=== PATIENT | male | born 1950 | race Caucasian/White ===

== ENCOUNTER → 2018-08-31 10:22 | Outpatient (POV) | payer MEDICARE, SELFPAY | PROVIDERS: Visit Provider Dermatology | DX: Z00.00 Encounter for general adult medical examination without abnormal findings (principal) ==

== ENCOUNTER → 2018-10-05 10:11 | Outpatient (POV) | payer MEDICARE, SELFPAY | PROVIDERS: Visit Provider Dermatology | DX: Z00.00 Encounter for general adult medical examination without abnormal findings (principal) ==

== ENCOUNTER → 2019-07-20 10:06 | Outpatient (CLI) | payer MEDICARE, SELFPAY ==
--- NOTE | 2019-07-20 10:12 | CT_ITS ---
PROCEDURE: CT SINUS WO CON CLINICAL HISTORY: CHRONIC RHITIS/SINUSITIS Left-sided facial pressure and nasal stuffiness COMPARISON: No exams were available for comparison TECHNIQUE: Axial images obtained with sagittal and coronal reformats. All CT scans at the facility use one or more dose reduction, viz: automated exposure control, ma/kV adjustment per patient size (including targeted exams where dose is matched to indication, i.e. head), or iterative reconstruction technique. FINDINGS: There is moderate leftward nasal septal deviation with a septal spur projecting toward the left. There is mild mucosal thickening of the left maxillary sinus. The frontal, ethmoid, right maxillary, and sphenoid sinus have an unremarkable appearance. No mastoid effusion. There is soft tissue density in both external auditory canals and may be related to cerumen. The middle ears are well aerated. The orbits are unremarkable. Osteoarthritic changes are present involving the right TMJ. IMPRESSION: 1. Mild mucosal thickening left maxillary sinus. No sinus air-fluid level. 2. Leftward nasal septal deviation. 3. Mild right TMJ arthropathy. Dictated by: Rian Segura MD 07/21/2019 11:59 Electronically signed by Rian Segura MD in [place] 07/21/2019 11:59
== END ==
PROVIDERS: PCP Internal Medicine; Visit Provider Internal Medicine
DX: J32.0 Chronic maxillary sinusitis (principal)
CPT/HCPCS: 70486

== ENCOUNTER → 2019-08-02 14:47 | Outpatient (CLI) | payer MEDICARE, SELFPAY ==
--- NOTE | 2019-08-02 14:56 | CT_ITS ---
PROCEDURE: CT ABDOMEN WO CON CLINICAL HISTORY: ABNORMAL WGT LOSS Abnormal weight loss, family history pancreatic cancer COMPARISON: No exams were available for comparison TECHNIQUE: Axial images obtained with sagittal and coronal reformats. All CT scans at the facility use one or more dose reduction, viz: automated exposure control, ma/kV adjustment per patient size (including targeted exams where dose is matched to indication, i.e. head), or iterative reconstruction technique. FINDINGS: There are at an mild atelectatic changes in the right lung base. There are some mild coronary artery calcifications noted. Multiple gallstones. The liver, spleen, adrenal glands, and pancreas have an unremarkable unenhanced appearance. No pancreatic mass or peripancreatic fluid collection or pancreatic ductal dilatation is identified. There is pancreatic atrophy. Thin section images are obtained of the abdomen including the pancreas. There is severe bilateral renal atrophy. There is an exophytic isodense the along the lower pole of the left kidney consistent with a renal cyst measuring 15 mm. There is some mild haziness of the mesenteric fat in the right lower quadrant nonspecific. Right pelvic renal allograft is present with some vascular calcification at the hilum of the graft. No hydronephrosis. There is diverticulosis of the sigmoid colon. The pelvis is not completely imaged. A diverticulum is also present in the ascending colon. No acute bony findings. IMPRESSION: 1. No evidence of pancreatic mass. There is pancreatic atrophy. 2. Cholelithiasis. 3. Coronary artery calcification. 4. Bilateral renal atrophy with right lower quadrant renal allograft noted Dictated by: Rian Segura MD 08/03/2019 06:18 Electronically signed by Rian Segura MD in [place] 08/03/2019 06:18
== END ==
PROVIDERS: PCP Internal Medicine; Visit Provider Internal Medicine
DX: R63.4 Abnormal weight loss (principal)
CPT/HCPCS: 74150

== ENCOUNTER → 2019-10-11 10:14 | Outpatient (POV) | payer MEDICARE, SELFPAY | PROVIDERS: Visit Provider Dermatology | DX: Z00.00 Encounter for general adult medical examination without abnormal findings (principal) ==

== ENCOUNTER → 2021-01-08 10:57 | Outpatient (POV) | payer MEDICARE, SELFPAY | PROVIDERS: Visit Provider Dermatology | DX: Z00.00 Encounter for general adult medical examination without abnormal findings (principal) ==

== ENCOUNTER → 2021-08-16 10:43 | Outpatient (CLI) | payer MEDICARE, SELFPAY ==
[2021-08-16 10:54] LABS: Microscopic, Urine URINE MICROSCOPIC (MICROSCOPIC)
[2021-08-16 11:23] LABS: Basophils # 0.1 K/mm3 (0-0.2); Basophils % 1.2 % (0.1-2.0); Eosinophils # 0.1 K/mm3 (0.0-0.4); Eosinophils % 1.2 % (0.1-12.0); Hematocrit 48.6 % (42.0-52.0); Lymphocytes # 1.8 K/mm3 (0.7-4.5); Lymphocytes % 27.6 % (10-50); Mean Corpuscular Volume 84.8 fl (80-94); Mean Platelet Volume 8.6 fl (7.4-10.4); Monocytes # 0.4 K/mm3 (0.1-1.0); Monocytes % 6.5 % (1.7-9.3); Neutrophils # 4.1 K/mm3 (1.8-7.8); Neutrophils % 63.4 % (37.0-80.0); Platelet Count 220 K/mm3 (142-424); Red Blood Count 5.73 M/mm3 (4.60-6.20); Red Cell Distribution Width 15.5 % (11.5-17.5); White Blood Count 6.5 K/mm3 (4.8-10.8)
[2021-08-16 11:48] LABS: Appearance,Urine CLEAR (Clear); Bilirubin,Urine Negative (Negative); Blood, Urine 1+ (Negative); Color,Urine YELLOW (Yellow); Glucose,Urine (UA) Negative (Negative); Ketones,Urine Negative (Negative); Leukocyte Esterase,Urine Negative (Negative); Nitrate,Urine Negative (Negative); Protein,Urine Negative (Negative); Specific Gravity, Urine 1.025 (1.005-1.030); Urobilinogen,Urine 0.2 EU/dl (0.2)
[2021-08-16 12:08] LABS: Creatinine,Urine Random 144 mg/dL (Not Estab.)
[2021-08-16 12:20] LABS: INR 2.69 (0.9-1.1); Prothrombin Time 28.2 seconds (10.1-12.5)
[2021-08-16 12:35] LABS: Albumin Level 4.2 g/dl (3.5-5.0); Blood Urea Nitrogen 18 mg/dl (9-20); Calcium 8.6 mg/dl (8.4-10.2); Carbon Dioxide 29 mmol/L (22.0-30.0); Chloride 104 mmol/L (98-107); Estimated Glomerular Filt Rate 74 ml/min (>60); GFR (African American) 90 ML/MIN (>60); Glucose 100 mg/dl (74-100); Phosphorous 3.6 mg/dl (2.5-4.5); Sodium 140 mmol/L (136-145)
[2021-08-16 12:47] LABS: Intact Parathyroid Hormone 110.2 pg/mL (7.5-53.5)
[2021-08-16 12:52] LABS: 25-OH Vitamin D, Total 41.4 ng/mL (30-100)
[2021-08-16 13:07] LABS: Bacteria,Urine 2+ /lpf; RBC,Urine Occasional #/hpf (0-3)
[2021-08-16 13:08] LABS: WBC,Urine Occasional #/hpf (0-3)
== END ==
PROVIDERS: Internal Medicine; Visit Provider Nurse Practitioner
DX: N18.2 Chronic kidney disease, stage 2 (mild) (principal); R80.9 Proteinuria, unspecified; E55.9 Vitamin D deficiency, unspecified; Z94.0 Kidney transplant status
CPT/HCPCS: 36415; 80069; 81001; 82306; 82570; 83970; 84155; 85025; 85610; 87086

== ENCOUNTER → 2021-09-17 09:36 | Outpatient (CLI) | payer MEDICARE, SELFPAY ==
[2021-09-17 10:36] LABS: Basophils % 0.6 % (0.1-2.0); Eosinophils # 0.1 K/mm3 (0.0-0.4); Eosinophils % 0.9 % (0.1-12.0); Hematocrit 46.7 % (42.0-52.0); Hemoglobin 15.4 g/dL (14.1-18.0); Lymphocytes # 1.2 K/mm3 (0.7-4.5); Lymphocytes % 18.8 % (10-50); Mean Corpuscular Hemoglobin 27.4 pg (27.0-31.2); Mean Corpuscular Volume 83.2 fl (80-94); Mean Platelet Volume 8.1 fl (7.4-10.4); Monocytes # 0.5 K/mm3 (0.1-1.0); Monocytes % 7.8 % (1.7-9.3); Neutrophils # 4.6 K/mm3 (1.8-7.8); Neutrophils % 71.9 % (37.0-80.0); Platelet Count 195 K/mm3 (142-424); Red Blood Count 5.61 M/mm3 (4.60-6.20); Red Cell Distribution Width 15.1 % (11.5-17.5); White Blood Count 6.4 K/mm3 (4.8-10.8)
[2021-09-17 10:45] LABS: INR 2.73 (0.9-1.1); Prothrombin Time 28.6 seconds (10.1-12.5)
[2021-09-17 11:01] LABS: Chloride 104 mmol/L (98-107); Potassium 4.1 mmoL/L (3.5-5.1); Sodium 141 mmol/L (136-145)
[2021-09-17 11:03] LABS: Alanine Aminotransferase 16 U/L (12-78); Anion Gap 14.1 mEq/L (5-15); Aspartate Amino Transferase 28 U/L (17-59); Blood Urea Nitrogen 19 mg/dl (9-20); Carbon Dioxide 27 mmol/L (22.0-30.0); Estimated Glomerular Filt Rate 74 ml/min (>60); GFR (African American) 90 ML/MIN (>60)
[2021-09-17 11:04] LABS: Albumin/Globulin Ratio 1.8 (1.1-1.8); Alkaline Phosphatase 73 U/L (38-126); Bilirubin,Total 0.2 mg/dl (0.2-1.3); Calcium 8.4 mg/dl (8.4-10.2); Chol/HDL Ratio 3.6 (1-3.5); Cholesterol 148 mg/dl (140-200); Globulin 2.2 g/dL (1.3-3.2); Glucose 139 mg/dl (74-100); HDL Cholesterol 41 mg/dl (40-60); Total Protein,Serum 6.2 g/dl (6.3-8.2); Triglycerides 117 mg/dl (30-150); VLDL Cholesterol 23 mg/dL (0-40)
[2021-09-17 11:05] LABS: Hemoglobin A1C 5.6 % (4.0-6.0)
[2021-09-17 11:22] LABS: Uric Acid 7.1 mg/dl (3.5-8.5)
[2021-09-17 11:33] LABS: Direct LDL Cholesterol 92.82 mg/dL (100-129)
== END ==
PROVIDERS: Visit Provider Internal Medicine
DX: E11.42 Type 2 diabetes mellitus with diabetic polyneuropathy (principal); E78.5 Hyperlipidemia, unspecified; I10 Essential (primary) hypertension; M10.9 Gout, unspecified; M15.0 Primary generalized (osteo)arthritis; Z51.81 Encounter for therapeutic drug level monitoring; Z79.01 Long term (current) use of anticoagulants
CPT/HCPCS: 36415; 80053; 80061; 83036; 84550; 85025; 85610

== ENCOUNTER → 2021-10-18 14:53 | Outpatient (CLI) | payer MEDICARE, SELFPAY ==
--- NOTE | 2021-10-18 15:04 | CA_ITS ---
FINAL REPORT TECHNIQUE: Sonographic images of the veins of the left upper extremity were obtained from axilla to antecubital fossa. Additionally, images of the internal jugular vein and subclavian vein were also obtained. CLINICAL HISTORY: REDNESS/SWELLING LEFT MED PROX FOREARM X SEVERAL DAYS, PT HAS NON-FUNCTIONING DIALYSIS FISTULA AND A SYNTHETIC GRAFT IN LUE FINDINGS: The veins of the left upper extremity are compressible from axilla to antecubital fossa. Blood flow is demonstrated by both color and spectral Doppler as well. The internal jugular vein and subclavian vein are also patent. Note is made of a non functioning fistula without evidence of flow. IMPRESSION: No evidence of venous thrombosis of the left upper extremity. Reviewed, Interpreted and Dictated by Panda Hall III, MD Transcribed by Fannie Tai Authenticated by Panda aHll III, MD on 10/18/2021 04:17:48 PM [facility]
== END ==
PROVIDERS: PCP Internal Medicine; Visit Provider Internal Medicine
DX: M79.622 Pain in left upper arm (principal); M79.89 Other specified soft tissue disorders
CPT/HCPCS: 93971

== ENCOUNTER → 2021-12-17 10:35 | Outpatient (CLI) | payer MEDICARE, SELFPAY ==
[2021-12-17 11:25] LABS: INR 2.52 (0.9-1.1); Prothrombin Time 26.6 seconds (10.1-12.5)
[2021-12-17 11:56] LABS: Hemoglobin A1C 5.6 % (4.0-6.0)
== END ==
PROVIDERS: Visit Provider Internal Medicine
DX: E11.42 Type 2 diabetes mellitus with diabetic polyneuropathy (principal); Z51.81 Encounter for therapeutic drug level monitoring; Z79.01 Long term (current) use of anticoagulants
CPT/HCPCS: 36415; 83036; 85610

== ENCOUNTER → 2022-02-17 10:18 | Outpatient (CLI) | payer MEDICARE, SELFPAY ==
[2022-02-17 10:26] LABS: Microscopic, Urine URINE MICROSCOPIC (MICROSCOPIC)
[2022-02-17 10:45] LABS: Appearance,Urine CLEAR (Clear); Bilirubin,Urine Negative (Negative); Blood, Urine 1+ (Negative); Color,Urine YELLOW (Yellow); Glucose,Urine (UA) Negative (Negative); Ketones,Urine Negative (Negative); Leukocyte Esterase,Urine Negative (Negative); Nitrate,Urine Negative (Negative); Protein,Urine Negative (Negative); Specific Gravity, Urine 1.015 (1.005-1.030); Urobilinogen,Urine 0.2 EU/dl (0.2)
[2022-02-17 10:48] LABS: Basophils # 0.1 K/mm3 (0-0.2); Basophils % 1.2 % (0.1-2.0); Eosinophils # 0.1 K/mm3 (0.0-0.4); Eosinophils % 0.9 % (0.1-12.0); Hematocrit 45.3 % (42.0-52.0); Hemoglobin 15.4 g/dL (14.1-18.0); Lymphocytes # 1.9 K/mm3 (0.7-4.5); Lymphocytes % 27.9 % (10-50); Mean Corpuscular Hemoglobin 28.2 pg (27.0-31.2); Mean Corpuscular Volume 82.8 fl (80-94); Mean Platelet Volume 8.4 fl (7.4-10.4); Monocytes # 0.5 K/mm3 (0.1-1.0); Monocytes % 7.6 % (1.7-9.3); Neutrophils # 4.3 K/mm3 (1.8-7.8); Neutrophils % 62.4 % (37.0-80.0); Platelet Count 180 K/mm3 (142-424); Red Blood Count 5.47 M/mm3 (4.60-6.20); Red Cell Distribution Width 16.4 % (11.5-17.5); White Blood Count 6.9 K/mm3 (4.8-10.8)
[2022-02-17 10:53] LABS: Creatinine,Urine Random 120 mg/dL (Not Estab.)
[2022-02-17 10:54] LABS: INR 2.13 (0.9-1.1); Prothrombin Time 22.8 seconds (10.1-12.5)
[2022-02-17 11:08] LABS: Albumin Level 3.8 g/dl (3.5-5.0); Blood Urea Nitrogen 17 mg/dl (9-20); Calcium 8.4 mg/dl (8.4-10.2); Carbon Dioxide 28 mmol/L (22.0-30.0); Chloride 105 mmol/L (98-107); Estimated Glomerular Filt Rate 74 ml/min (>60); GFR (African American) 89 ML/MIN (>60); Glucose 98 mg/dl (74-100); Phosphorous 3.1 mg/dl (2.5-4.5); Sodium 138 mmol/L (136-145)
[2022-02-17 11:20] LABS: Intact Parathyroid Hormone 124.1 pg/mL (7.5-53.5)
[2022-02-17 11:26] LABS: 25-OH Vitamin D, Total 49.2 ng/mL (30-100)
[2022-02-17 12:01] LABS: Bacteria,Urine 2+ /lpf; Squamous Epithelial Cell,Urine Occasional #/hpf (0-5)
== END ==
PROVIDERS: Internal Medicine
DX: N18.2 Chronic kidney disease, stage 2 (mild) (principal); N25.81 Secondary hyperparathyroidism of renal origin; Z51.81 Encounter for therapeutic drug level monitoring; Z79.01 Long term (current) use of anticoagulants; R82.90 Unspecified abnormal findings in urine
CPT/HCPCS: 36415; 80069; 81001; 82306; 82570; 83970; 84155; 85025; 85610; 87086

== ENCOUNTER → 2022-02-27 08:41 | Outpatient (CLI) | payer MEDICARE, SELFPAY | PROVIDERS: PCP Internal Medicine; Visit Provider Nurse Practitioner | DX: Z94.0 Kidney transplant status (principal) | CPT/HCPCS: 36415 ==

== ENCOUNTER → 2022-03-24 09:39 | Outpatient (CLI) | payer MEDICARE, SELFPAY ==
[2022-03-24 10:23] LABS: Basophils # 0.1 K/mm3 (0-0.2); Basophils % 1.7 % (0.1-2.0); Eosinophils # 0.1 K/mm3 (0.0-0.4); Eosinophils % 0.9 % (0.1-12.0); Hematocrit 48.7 % (42.0-52.0); Hemoglobin 15.1 g/dL (14.1-18.0); Lymphocytes # 1.6 K/mm3 (0.7-4.5); Lymphocytes % 19.6 % (10-50); Mean Corpuscular HGB Conc 31.1 g/dL (31.8-35.4); Mean Corpuscular Hemoglobin 27.1 pg (27.0-31.2); Mean Corpuscular Volume 87.3 fl (80-94); Mean Platelet Volume 8.6 fl (7.4-10.4); Monocytes # 0.6 K/mm3 (0.1-1.0); Monocytes % 7.7 % (1.7-9.3); Neutrophils # 5.5 K/mm3 (1.8-7.8); Neutrophils % 70.1 % (37.0-80.0); Platelet Count 218 K/mm3 (142-424); Red Blood Count 5.58 M/mm3 (4.60-6.20); Red Cell Distribution Width 16.1 % (11.5-17.5); White Blood Count 7.9 K/mm3 (4.8-10.8)
[2022-03-24 10:25] LABS: Creatinine,Urine Random 85 mg/dL (Not Estab.)
[2022-03-24 10:27] LABS: Microalbumin/Creatinine Ratio 27.7
[2022-03-24 10:29] LABS: INR 2.15 (0.9-1.1)
[2022-03-24 10:47] LABS: Chloride 102 mmol/L (98-107); Hemoglobin A1C 5.7 % (4.0-6.0); Sodium 137 mmol/L (136-145)
[2022-03-24 10:48] LABS: Potassium 3.9 mmoL/L (3.5-5.1)
[2022-03-24 10:50] LABS: Alanine Aminotransferase 19 U/L (12-78); Albumin Level 4.1 g/dl (3.5-5.0); Albumin/Globulin Ratio 1.9 (1.1-1.8); Alkaline Phosphatase 61 U/L (38-126); Anion Gap 9.9 mEq/L (5-15); Aspartate Amino Transferase 30 U/L (17-59); Bilirubin,Total 0.5 mg/dl (0.2-1.3); Blood Urea Nitrogen 16 mg/dl (9-20); Carbon Dioxide 29 mmol/L (22.0-30.0); Cholesterol 152 mg/dl (140-200); Estimated Glomerular Filt Rate 74 ml/min (>60); GFR (African American) 89 ML/MIN (>60); Globulin 2.2 g/dL (1.3-3.2); Total Protein,Serum 6.3 g/dl (6.3-8.2); Triglycerides 183 mg/dl (30-150); VLDL Cholesterol 37 mg/dL (0-40)
[2022-03-24 10:51] LABS: Calcium 9.1 mg/dl (8.4-10.2); Glucose 109 mg/dl (74-100); HDL Cholesterol 38 mg/dl (40-60)
[2022-03-24 11:01] LABS: Direct LDL Cholesterol 74.91 mg/dL (100-129)
[2022-03-24 11:05] LABS: Uric Acid 6.8 mg/dl (3.5-8.5)
== END ==
PROVIDERS: PCP Internal Medicine; Visit Provider Internal Medicine
DX: E11.42 Type 2 diabetes mellitus with diabetic polyneuropathy (principal); I12.9 Hypertensive chronic kidney disease with stage 1 through stage 4 chronic kidney disease, or unspecified chronic kidney disease; N18.2 Chronic kidney disease, stage 2 (mild); I87.2 Venous insufficiency (chronic) (peripheral); M10.9 Gout, unspecified; Z94.0 Kidney transplant status; Z51.81 Encounter for therapeutic drug level monitoring; Z79.01 Long term (current) use of anticoagulants
CPT/HCPCS: 36415; 80053; 80061; 82043; 82570; 83036; 84550; 85025; 85610

== ENCOUNTER → 2022-07-15 12:45 | Outpatient (CLI) | payer MEDICARE, SELFPAY ==
[2022-07-15 16:16] LABS: INR 2.06 (0.9-1.1); Prothrombin Time 21.4 seconds (10.1-12.5)
[2022-07-15 19:01] LABS: Hemoglobin A1C 5.7 % (4.0-6.0)
== END ==
PROVIDERS: PCP Internal Medicine; Visit Provider Internal Medicine
DX: Z94.0 Kidney transplant status (principal); E11.42 Type 2 diabetes mellitus with diabetic polyneuropathy; I10 Essential (primary) hypertension
CPT/HCPCS: 83036; 85610

== ENCOUNTER → 2022-08-18 09:18 | Outpatient (CLI) | payer MEDICARE, SELFPAY ==
[2022-08-18 09:43] LABS: Microscopic, Urine URINE MICROSCOPIC (MICROSCOPIC)
[2022-08-18 10:05] LABS: Basophils # 0.1 K/mm3 (0-0.2); Basophils % 2.2 % (0.1-2.0); Eosinophils # 0.1 K/mm3 (0.0-0.4); Hematocrit 43.1 % (42.0-52.0); Hemoglobin 14.1 g/dL (14.1-18.0); Lymphocytes # 1.3 K/mm3 (0.7-4.5); Lymphocytes % 22.4 % (10-50); Mean Corpuscular HGB Conc 32.8 g/dL (31.8-35.4); Mean Corpuscular Hemoglobin 26.8 pg (27.0-31.2); Mean Corpuscular Volume 81.5 fl (80-94); Mean Platelet Volume 8.1 fl (7.4-10.4); Monocytes # 0.6 K/mm3 (0.1-1.0); Monocytes % 10.3 % (1.7-9.3); Neutrophils # 3.8 K/mm3 (1.8-7.8); Neutrophils % 64.2 % (37.0-80.0); Platelet Count 237 K/mm3 (142-424); Red Blood Count 5.28 M/mm3 (4.60-6.20); White Blood Count 5.8 K/mm3 (4.8-10.8)
[2022-08-18 10:30] LABS: Appearance,Urine CLEAR (Clear); Bilirubin,Urine Negative (Negative); Blood, Urine TRACE-L (Negative); Color,Urine YELLOW (Yellow); Glucose,Urine (UA) Negative (Negative); Ketones,Urine Negative (Negative); Leukocyte Esterase,Urine Negative (Negative); Nitrate,Urine Negative (Negative); PH,Urine 5.5 (5.0-8.5); Protein,Urine Negative (Negative); Specific Gravity, Urine 1.025 (1.005-1.030); Urobilinogen,Urine 0.2 EU/dl (0.2)
[2022-08-18 10:46] LABS: Bacteria,Urine Trace /lpf; Squamous Epithelial Cell,Urine Occasional #/hpf (0-5)
[2022-08-18 10:47] LABS: Creatinine,Urine Random 129 mg/dL (Not Estab.)
[2022-08-18 10:49] LABS: Sodium 133 mmol/L (136-145)
[2022-08-18 10:50] LABS: Albumin Level 3.7 g/dl (3.5-5.0); Anion Gap 12.9 mEq/L (5-15); Blood Urea Nitrogen 20 mg/dl (9-20); Calcium 8.8 mg/dl (8.4-10.2); Carbon Dioxide 27 mmol/L (22.0-30.0); Chloride 97 mmol/L (98-107); Estimated Glomerular Filt Rate 60 ml/min (>60); GFR (African American) 72 ML/MIN (>60); Glucose 116 mg/dl (74-100); Phosphorous 3.1 mg/dl (2.5-4.5); Potassium 3.9 mmoL/L (3.5-5.1)
[2022-08-18 11:02] LABS: Intact Parathyroid Hormone 81.1 pg/mL (7.5-53.5)
== END ==
PROVIDERS: PCP Internal Medicine; Visit Provider Nurse Practitioner
DX: N18.2 Chronic kidney disease, stage 2 (mild) (principal); N25.81 Secondary hyperparathyroidism of renal origin; R80.9 Proteinuria, unspecified
CPT/HCPCS: 36415; 80069; 81001; 82306; 82570; 83970; 84155; 85025

== ENCOUNTER → 2022-10-14 12:50 | Outpatient (CLI) | payer MEDICARE, SELFPAY ==
[2022-10-14 14:17] LABS: INR 2.01 (0.9-1.1); Prothrombin Time 20.9 seconds (10.1-12.5)
[2022-10-14 14:18] LABS: Basophils % 0.6 % (0.1-2.0); Eosinophils # 0.1 K/mm3 (0.0-0.4); Eosinophils % 0.9 % (0.1-12.0); Hematocrit 42.2 % (42.0-52.0); Lymphocytes # 1.7 K/mm3 (0.7-4.5); Lymphocytes % 28.6 % (10-50); Mean Corpuscular HGB Conc 33.2 g/dL (31.8-35.4); Mean Corpuscular Hemoglobin 26.1 pg (27.0-31.2); Mean Corpuscular Volume 78.5 fl (80-94); Mean Platelet Volume 9.7 fl (7.4-10.4); Monocytes # 0.7 K/mm3 (0.1-1.0); Monocytes % 11.5 % (1.7-9.3); Neutrophils # 3.5 K/mm3 (1.8-7.8); Neutrophils % 58.4 % (37.0-80.0); Platelet Count 255 K/mm3 (142-424); Red Blood Count 5.37 M/mm3 (4.60-6.20); Red Cell Distribution Width 16.3 % (11.5-17.5); White Blood Count 5.9 K/mm3 (4.8-10.8)
[2022-10-14 14:47] LABS: Alanine Aminotransferase 17 U/L (12-78); Albumin Level 3.8 g/dl (3.5-5.0); Albumin/Globulin Ratio 1.7 (1.1-1.8); Alkaline Phosphatase 67 U/L (38-126); Anion Gap 13.1 mEq/L (5-15); Aspartate Amino Transferase 28 U/L (17-59); Bilirubin,Total 0.6 mg/dl (0.2-1.3); Blood Urea Nitrogen 21 mg/dl (9-20); Calcium 8.3 mg/dl (8.4-10.2); Carbon Dioxide 27 mmol/L (22.0-30.0); Chloride 100 mmol/L (98-107); Chol/HDL Ratio 4.1 (1-3.5); Cholesterol 138 mg/dl (140-200); Estimated Glomerular Filt Rate 66 ml/min (>60); GFR (African American) 80 ML/MIN (>60); Globulin 2.3 g/dL (1.3-3.2); Glucose 84 mg/dl (74-100); HDL Cholesterol 34 mg/dl (40-60); Potassium 4.1 mmoL/L (3.5-5.1); Sodium 136 mmol/L (136-145); Total Protein,Serum 6.1 g/dl (6.3-8.2); Triglycerides 194 mg/dl (30-150); Uric Acid 8.1 mg/dl (3.5-8.5); VLDL Cholesterol 39 mg/dL (0-40)
[2022-10-14 14:58] LABS: Direct LDL Cholesterol 74.91 mg/dL (100-129)
[2022-10-14 15:48] LABS: Hemoglobin A1C 5.9 % (4.0-6.0)
== END ==
PROVIDERS: PCP Internal Medicine; Visit Provider Internal Medicine
DX: E11.42 Type 2 diabetes mellitus with diabetic polyneuropathy (principal); I10 Essential (primary) hypertension; M10.9 Gout, unspecified; N18.2 Chronic kidney disease, stage 2 (mild); Z79.01 Long term (current) use of anticoagulants; Z94.0 Kidney transplant status
CPT/HCPCS: 80053; 80061; 83036; 84550; 85025; 85610

== ENCOUNTER → 2023-01-12 12:27 | Outpatient (CLI) | payer MEDICARE, SELFPAY ==
[2023-01-12 13:03] LABS: INR 3.58 (0.9-1.1)
== END ==
PROVIDERS: PCP Internal Medicine; Visit Provider Internal Medicine
DX: I10 Essential (primary) hypertension (principal); Z51.81 Encounter for therapeutic drug level monitoring; Z79.01 Long term (current) use of anticoagulants
CPT/HCPCS: 85610

== ENCOUNTER → 2023-02-16 07:30 | Outpatient (CLI) | payer MEDICARE, SELFPAY ==
[2023-02-16 07:40] LABS: Microscopic, Urine URINE MICROSCOPIC (MICROSCOPIC)
[2023-02-16 08:06] LABS: Appearance,Urine CLEAR (Clear); Bilirubin,Urine Negative (Negative); Blood, Urine TRACE-I (Negative); Color,Urine YELLOW (Yellow); Glucose,Urine (UA) Negative (Negative); Ketones,Urine Negative (Negative); Leukocyte Esterase,Urine Negative (Negative); Nitrate,Urine Negative (Negative); PH,Urine 6.5 (5.0-8.5); Protein,Urine Negative (Negative); Urobilinogen,Urine 0.2 EU/dl (0.2)
[2023-02-16 08:16] LABS: Basophils # 0.1 K/mm3 (0-0.2); Basophils % 1.1 % (0.1-2.0); Eosinophils # 0.1 K/mm3 (0.0-0.4); Eosinophils % 0.8 % (0.1-12.0); Hematocrit 44.1 % (42.0-52.0); Hemoglobin 14.5 g/dL (14.1-18.0); Lymphocytes # 1.8 K/mm3 (0.7-4.5); Lymphocytes % 29.4 % (10-50); Mean Corpuscular HGB Conc 32.9 g/dL (31.8-35.4); Mean Corpuscular Hemoglobin 26.2 pg (27.0-31.2); Mean Corpuscular Volume 79.6 fl (80-94); Mean Platelet Volume 8.3 fl (7.4-10.4); Monocytes # 0.6 K/mm3 (0.1-1.0); Monocytes % 10.4 % (1.7-9.3); Neutrophils # 3.5 K/mm3 (1.8-7.8); Neutrophils % 58.4 % (37.0-80.0); Platelet Count 207 K/mm3 (142-424); Red Blood Count 5.54 M/mm3 (4.60-6.20); Red Cell Distribution Width 16.6 % (11.5-17.5)
[2023-02-16 08:16] LABS: INR 2.12 (0.9-1.1); Prothrombin Time 21.9 seconds (10.1-12.5)
[2023-02-16 08:29] LABS: Bacteria,Urine Trace /lpf; RBC,Urine Occasional #/hpf (0-3); Squamous Epithelial Cell,Urine Occasional #/hpf (0-5)
[2023-02-16 08:56] LABS: Albumin Level 3.8 g/dl (3.5-5.0); Blood Urea Nitrogen 19 mg/dl (9-20); Calcium 8.9 mg/dl (8.4-10.2); Carbon Dioxide 28 mmol/L (22.0-30.0); Chloride 102 mmol/L (98-107); Estimated Glomerular Filt Rate 74 ml/min (>60); GFR (African American) 89 ML/MIN (>60); Glucose 95 mg/dl (74-100); Sodium 137 mmol/L (136-145)
[2023-03-15 21:24] LABS: Sirolimus(Rapamune) 2.6 ng/mL
== END ==
PROVIDERS: PCP Internal Medicine; Visit Provider Hospitalist
DX: N18.2 Chronic kidney disease, stage 2 (mild) (principal); Z94.0 Kidney transplant status; Z51.81 Encounter for therapeutic drug level monitoring; Z79.01 Long term (current) use of anticoagulants
CPT/HCPCS: 36415; 80069; 80195; 81001; 85025; 85610

== ENCOUNTER → 2023-04-14 12:15 | Outpatient (CLI) | payer MEDICARE, SELFPAY ==
[2023-04-14 13:36] LABS: Basophils % 0.7 % (0.1-2.0); Eosinophils % 0.9 % (0.1-12.0); Hematocrit 44.1 % (42.0-52.0); Hemoglobin 14.3 g/dL (14.1-18.0); Lymphocytes # 0.8 K/mm3 (0.7-4.5); Lymphocytes % 16.5 % (10-50); Mean Corpuscular HGB Conc 32.5 g/dL (31.8-35.4); Mean Corpuscular Hemoglobin 25.6 pg (27.0-31.2); Mean Corpuscular Volume 78.9 fl (80-94); Mean Platelet Volume 9.3 fl (7.4-10.4); Monocytes # 0.4 K/mm3 (0.1-1.0); Monocytes % 8.1 % (1.7-9.3); Neutrophils # 3.4 K/mm3 (1.8-7.8); Neutrophils % 73.8 % (37.0-80.0); Platelet Count 217 K/mm3 (142-424); Red Blood Count 5.59 M/mm3 (4.60-6.20); Red Cell Distribution Width 16.9 % (11.5-17.5); White Blood Count 4.7 K/mm3 (4.8-10.8)
[2023-04-14 14:09] LABS: Hemoglobin A1C 5.7 % (4.0-6.0)
[2023-04-14 14:53] LABS: Alanine Aminotransferase 26 U/L (12-78); Albumin Level 3.8 g/dl (3.5-5.0); Albumin/Globulin Ratio 1.6 (1.1-1.8); Alkaline Phosphatase 81 U/L (38-126); Anion Gap 13.5 mEq/L (5-15); Aspartate Amino Transferase 36 U/L (17-59); Bilirubin,Total 0.2 mg/dl (0.2-1.3); Blood Urea Nitrogen 20 mg/dl (9-20); Calcium 8.8 mg/dl (8.4-10.2); Carbon Dioxide 27 mmol/L (22.0-30.0); Chloride 103 mmol/L (98-107); Chol/HDL Ratio 4.7 (1-3.5); Cholesterol 150 mg/dl (140-200); Estimated Glomerular Filt Rate 74 ml/min (>60); GFR (African American) 89 ML/MIN (>60); Globulin 2.4 g/dL (1.3-3.2); Glucose 123 mg/dl (74-100); HDL Cholesterol 32 mg/dl (40-60); Potassium 4.5 mmoL/L (3.5-5.1); Sodium 139 mmol/L (136-145); Total Protein,Serum 6.2 g/dl (6.3-8.2); Triglycerides 209 mg/dl (30-150); Uric Acid 7.9 mg/dl (3.5-8.5); VLDL Cholesterol 42 mg/dL (0-40)
[2023-04-14 15:04] LABS: Direct LDL Cholesterol 87.83 mg/dL (100-129)
[2023-04-14 15:25] LABS: Prostate Specific Ag Screen 1.2 ng/ml (0.0-4.0)
== END ==
PROVIDERS: PCP Internal Medicine; Visit Provider Internal Medicine
DX: E11.42 Type 2 diabetes mellitus with diabetic polyneuropathy (principal); I10 Essential (primary) hypertension; E78.5 Hyperlipidemia, unspecified; I87.2 Venous insufficiency (chronic) (peripheral); M10.9 Gout, unspecified; N18.2 Chronic kidney disease, stage 2 (mild); Z51.81 Encounter for therapeutic drug level monitoring; Z79.01 Long term (current) use of anticoagulants; Z94.0 Kidney transplant status; Z12.5 Encounter for screening for malignant neoplasm of prostate
CPT/HCPCS: 80053; 80061; 83036; 84550; 85025; G0103

== ENCOUNTER → 2023-07-29 14:48 | Outpatient (CLI) | payer MEDICARE, SELFPAY ==
[2023-07-29 15:17] LABS: INR 1.22 (0.9-1.1)
== END ==
PROVIDERS: PCP Internal Medicine; Visit Provider Internal Medicine
DX: Z51.81 Encounter for therapeutic drug level monitoring; Z79.01 Long term (current) use of anticoagulants; Z94.0 Kidney transplant status; I87.2 Venous insufficiency (chronic) (peripheral)
CPT/HCPCS: 85610

== ENCOUNTER → 2023-09-07 10:12 | Outpatient (CLI) | payer MEDICARE, SELFPAY ==
[2023-09-07 10:26] LABS: Microscopic, Urine URINE MICROSCOPIC (MICROSCOPIC)
[2023-09-07 10:52] LABS: Basophils % 0.8 % (0.1-2.0); Eosinophils % 0.6 % (0.1-12.0); Hematocrit 44.3 % (42.0-52.0); Hemoglobin 14.6 g/dL (14.1-18.0); Lymphocytes # 1.4 K/mm3 (0.7-4.5); Lymphocytes % 43.4 % (10-50); Mean Corpuscular HGB Conc 32.9 g/dL (31.8-35.4); Mean Corpuscular Volume 79.2 fl (80-94); Mean Platelet Volume 8.3 fl (7.4-10.4); Monocytes # 0.4 K/mm3 (0.1-1.0); Neutrophils # 1.4 K/mm3 (1.8-7.8); Neutrophils % 43.2 % (37.0-80.0); Platelet Count 189 K/mm3 (142-424); Red Blood Count 5.59 M/mm3 (4.60-6.20); Red Cell Distribution Width 17.5 % (11.5-17.5); White Blood Count 3.2 K/mm3 (4.8-10.8)
[2023-09-07 15:19] LABS: Appearance,Urine CLEAR (Clear); Bilirubin,Urine Negative (Negative); Blood, Urine TRACE-I (Negative); Color,Urine YELLOW (Yellow); Glucose,Urine (UA) Negative (Negative); Ketones,Urine Negative (Negative); Leukocyte Esterase,Urine Negative (Negative); Nitrate,Urine Negative (Negative); Protein,Urine Negative (Negative); Specific Gravity, Urine >= 1.030 (1.005-1.030); Urobilinogen,Urine 0.2 EU/dl (0.2)
[2023-09-07 15:30] LABS: Chloride 105 mmol/L (98-107)
[2023-09-07 15:31] LABS: Sodium 138 mmol/L (136-145)
[2023-09-07 15:33] LABS: Blood Urea Nitrogen 15 mg/dl (9-20); Estimated Glomerular Filt Rate 66 ml/min (>60); GFR (African American) 80 ML/MIN (>60)
[2023-09-07 15:34] LABS: Calcium 8.5 mg/dl (8.4-10.2); Carbon Dioxide 28 mmol/L (22.0-30.0); Glucose 103 mg/dl (74-100); Phosphorous 3.4 mg/dl (2.5-4.5)
[2023-09-07 15:37] LABS: RBC,Urine Occasional #/hpf (0-3); Squamous Epithelial Cell,Urine Occasional #/hpf (0-5)
[2023-09-07 16:10] LABS: Creatinine,Urine Random 139 mg/dL (Not Estab.)
[2023-09-13 22:39] LABS: Sirolimus(Rapamune) 3.4 ng/mL
== END ==
PROVIDERS: Student in an Organized Health Care Education/Training Program; PCP Internal Medicine; Visit Provider Internal Medicine Nephrology
DX: Z94.0 Kidney transplant status (principal); N18.2 Chronic kidney disease, stage 2 (mild)
CPT/HCPCS: 36415; 80069; 80195; 81001; 82570; 84155; 85025

== ENCOUNTER 2023-10-23 12:16 | Outpatient (CLI) | payer MEDICARE, SELFPAY ==
[2023-10-23 15:24] LABS: INR 2.62 (0.9-1.1); Prothrombin Time 26.6 seconds (10.1-12.5)
[2023-10-23 15:38] LABS: Alanine Aminotransferase 18 U/L (12-78); Albumin Level 3.9 g/dl (3.5-5.0); Albumin/Globulin Ratio 1.6 (1.1-1.8); Alkaline Phosphatase 75 U/L (38-126); Anion Gap 12.9 mEq/L (5-15); Aspartate Amino Transferase 33 U/L (17-59); Bilirubin,Total 0.7 mg/dl (0.2-1.3); Blood Urea Nitrogen 17 mg/dl (9-20); Calcium 8.8 mg/dl (8.4-10.2); Carbon Dioxide 26 mmol/L (22.0-30.0); Chloride 102 mmol/L (98-107); Chol/HDL Ratio 4.4 (1-3.5); Cholesterol 140 mg/dl (140-200); Estimated Glomerular Filt Rate 66 ml/min (>60); GFR (African American) 80 ML/MIN (>60); Globulin 2.4 g/dL (1.3-3.2); Glucose 76 mg/dl (74-100); HDL Cholesterol 32 mg/dl (40-60); Potassium 3.9 mmoL/L (3.5-5.1); Sodium 137 mmol/L (136-145); Total Protein,Serum 6.3 g/dl (6.3-8.2); Triglycerides 161 mg/dl (30-150); Uric Acid 7.7 mg/dl (3.5-8.5); VLDL Cholesterol 32 mg/dL (0-40)
[2023-10-23 15:49] LABS: Direct LDL Cholesterol 80.54 mg/dL (100-129)
[2023-10-23 18:03] LABS: Hemoglobin A1C 5.5 % (4.0-6.0)
== END 2023-10-23 23:59 ==
LOC: LAB.DROPOF 12:17
PROVIDERS: PCP Internal Medicine; Visit Provider Internal Medicine
DX: E11.42 Type 2 diabetes mellitus with diabetic polyneuropathy (principal); I10 Essential (primary) hypertension; N18.9 Chronic kidney disease, unspecified; M10.9 Gout, unspecified; M15.0 Primary generalized (osteo)arthritis; Z51.81 Encounter for therapeutic drug level monitoring; Z79.01 Long term (current) use of anticoagulants
CPT/HCPCS: 80053; 80061; 83036; 84550; 85610

== ENCOUNTER 2024-01-19 14:44 | Outpatient (POV) | payer MEDICARE, SELFPAY | END 2024-01-19 23:59 | disposition home or self-care (01) | LOC: SC 14:44 | PROVIDERS: PCP Internal Medicine; Visit Provider Dermatology | DX: Z00.00 Encounter for general adult medical examination without abnormal findings (principal) ==

== ENCOUNTER 2024-01-22 16:53 | Outpatient (CLI) | payer MEDICARE, SELFPAY | END 2024-01-22 23:59 | disposition home or self-care (01) | LOC: LAB.DROPOF 16:54 | PROVIDERS: PCP Internal Medicine; Visit Provider Internal Medicine | DX: Z51.81 Encounter for therapeutic drug level monitoring (principal); Z79.01 Long term (current) use of anticoagulants ==

== ENCOUNTER 2024-04-04 10:46 | Outpatient (CLI) | payer MEDICARE, SELFPAY ==
[2024-04-04 10:55] LABS: Microscopic, Urine URINE MICROSCOPIC (MICROSCOPIC)
[2024-04-04 11:17] LABS: Appearance,Urine CLEAR (Clear); Bilirubin,Urine Negative (Negative); Blood, Urine TRACE-I (Negative); Color,Urine YELLOW (Yellow); Glucose,Urine (UA) Negative (Negative); Ketones,Urine Negative (Negative); Leukocyte Esterase,Urine Negative (Negative); Nitrate,Urine Negative (Negative); Protein,Urine Negative (Negative); Urobilinogen,Urine 0.2 EU/dl (0.2)
[2024-04-04 11:27] LABS: Basophils # 0.1 K/mm3 (0-0.2); Basophils % 1.7 % (0.1-2.0); Creatinine,Urine Random 92 mg/dL (Not Estab.); Eosinophils % 0.7 % (0.1-12.0); Hemoglobin 14.7 g/dL (14.1-18.0); Lymphocytes # 1.5 K/mm3 (0.7-4.5); Lymphocytes % 36.3 % (10-50); Mean Corpuscular HGB Conc 32.6 g/dL (31.8-35.4); Mean Corpuscular Hemoglobin 26.3 pg (27.0-31.2); Mean Corpuscular Volume 80.7 fl (80-94); Mean Platelet Volume 8.8 fl (7.4-10.4); Monocytes # 0.5 K/mm3 (0.1-1.0); Monocytes % 11.5 % (1.7-9.3); Neutrophils # 2.1 K/mm3 (1.8-7.8); Platelet Count 194 K/mm3 (142-424); Red Blood Count 5.58 M/mm3 (4.60-6.20); Red Cell Distribution Width 16.8 % (11.5-17.5); White Blood Count 4.1 K/mm3 (4.8-10.8)
[2024-04-04 11:32] LABS: Bacteria,Urine Trace /lpf; Calcium Oxalate Crystals,Urine Trace /lpf; RBC,Urine Occasional #/hpf (0-3); WBC,Urine Occasional #/hpf (0-3)
[2024-04-04 11:40] LABS: Chloride 106 mmol/L (98-107)
[2024-04-04 11:41] LABS: Albumin Level 3.9 g/dl (3.5-5.0); Sodium 138 mmol/L (136-145)
[2024-04-04 11:43] LABS: Blood Urea Nitrogen 17 mg/dl (9-20); Estimated Glomerular Filt Rate 60 ml/min (>60); GFR (African American) 72 ML/MIN (>60)
[2024-04-04 11:44] LABS: Calcium 8.8 mg/dl (8.4-10.2); Carbon Dioxide 26 mmol/L (22.0-30.0); Glucose 103 mg/dl (74-100); Phosphorous 3.5 mg/dl (2.5-4.5)
[2024-04-04 12:04] LABS: INR 2.05 (0.9-1.1); Prothrombin Time 21.4 seconds (10.1-12.5)
[2024-05-16 11:13] LABS: Sirolimus(Rapamune) 2.8 ng/mL
== END 2024-04-04 23:59 | disposition home or self-care (01) ==
LOC: LAB 10:47
PROVIDERS: Student in an Organized Health Care Education/Training Program; PCP Internal Medicine; Visit Provider Internal Medicine
DX: Z79.01 Long term (current) use of anticoagulants (principal); N18.2 Chronic kidney disease, stage 2 (mild); Z94.0 Kidney transplant status; Z51.81 Encounter for therapeutic drug level monitoring
CPT/HCPCS: 36415; 80069; 80195; 81001; 82570; 84156; 85025; 85610

== ENCOUNTER 2024-04-25 15:30 | Outpatient (CLI) | payer MEDICARE, SELFPAY ==
[2024-04-25 18:12] LABS: Alanine Aminotransferase 19 U/L (12-78); Albumin/Globulin Ratio 1.5 (1.1-1.8); Alkaline Phosphatase 79 U/L (38-126); Anion Gap 14.1 mEq/L (5-15); Aspartate Amino Transferase 36 U/L (17-59); Bilirubin,Total 0.7 mg/dl (0.2-1.3); Blood Urea Nitrogen 23 mg/dl (9-20); Calcium 9.2 mg/dl (8.4-10.2); Carbon Dioxide 27 mmol/L (22.0-30.0); Chloride 102 mmol/L (98-107); Chol/HDL Ratio 4.6 (1-3.5); Cholesterol 170 mg/dl (140-200); Estimated Glomerular Filt Rate 66 ml/min (>60); GFR (African American) 80 ML/MIN (>60); Globulin 2.6 g/dL (1.3-3.2); Glucose 91 mg/dl (74-100); HDL Cholesterol 37 mg/dl (40-60); Potassium 4.1 mmoL/L (3.5-5.1); Sodium 139 mmol/L (136-145); Total Protein,Serum 6.6 g/dl (6.3-8.2); Triglycerides 256 mg/dl (30-150); VLDL Cholesterol 51 mg/dL (0-40)
[2024-04-25 18:32] LABS: Direct LDL Cholesterol 87.48 mg/dL (100-129)
[2024-04-25 18:41] LABS: Prostate Specific Ag Screen 1.2 ng/ml (0.0-4.0)
[2024-04-25 19:04] LABS: Hemoglobin A1C 5.3 % (4.0-6.0)
== END 2024-04-25 23:59 | disposition home or self-care (01) ==
LOC: LAB.DROPOF 04-26 15:31
PROVIDERS: PCP Internal Medicine; Visit Provider Internal Medicine
DX: E11.9 Type 2 diabetes mellitus without complications (principal); E78.5 Hyperlipidemia, unspecified; Z12.5 Encounter for screening for malignant neoplasm of prostate; I10 Essential (primary) hypertension; Z94.0 Kidney transplant status; Z79.84 Long term (current) use of oral hypoglycemic drugs; Z79.4 Long term (current) use of insulin
CPT/HCPCS: 80053; 80061; 83036; G0103

== ENCOUNTER 2024-07-25 10:40 | Outpatient (CLI) | payer MEDICARE, SELFPAY ==
[2024-07-25 14:49] LABS: Hemoglobin A1C 5.5 % (4.0-6.0)
== END 2024-07-25 23:59 | disposition home or self-care (01) ==
LOC: LAB.DROPOF 07-26 15:26
PROVIDERS: PCP Internal Medicine; Visit Provider Internal Medicine
DX: E11.9 Type 2 diabetes mellitus without complications (principal); Z79.84 Long term (current) use of oral hypoglycemic drugs; Z79.4 Long term (current) use of insulin
CPT/HCPCS: 83036

== ENCOUNTER 2024-07-26 08:20 | Outpatient (CLI) | payer MEDICARE, SELFPAY ==
[2024-07-26 09:24] LABS: INR 1.94 (0.9-1.1); Prothrombin Time 20.3 seconds (10.1-12.5)
== END 2024-07-26 23:59 | disposition home or self-care (01) ==
LOC: LAB.DROPOF 07-27 09:25
PROVIDERS: PCP Internal Medicine; Visit Provider Internal Medicine
DX: I82.409 Acute embolism and thrombosis of unspecified deep veins of unspecified lower extremity (principal)
CPT/HCPCS: 85610

== ENCOUNTER 2024-10-24 15:21 | Outpatient (CLI) | payer MEDICARE, SELFPAY ==
[2024-10-24 15:57] LABS: Basophils % 0.3 % (0.1-2.0); Eosinophils % 0.1 % (0.1-12.0); Hematocrit 48.9 % (42.0-52.0); Hemoglobin 14.9 g/dL (14.1-18.0); Lymphocytes # 0.9 K/mm3 (0.7-4.5); Lymphocytes % 11.8 % (10-50); Mean Corpuscular HGB Conc 30.5 g/dL (31.8-35.4); Mean Corpuscular Hemoglobin 25.1 pg (27.0-31.2); Mean Corpuscular Volume 82.5 fl (80-94); Mean Platelet Volume 11.1 fl (7.4-10.4); Monocytes # 0.7 K/mm3 (0.1-1.0); Monocytes % 8.9 % (1.7-9.3); Neutrophils # 5.6 K/mm3 (1.8-7.8); Neutrophils % 74.3 % (37.0-80.0); Platelet Count 198 K/mm3 (142-424); Red Blood Count 5.93 M/mm3 (4.60-6.20); Red Cell Distribution Width 17.7 % (11.5-17.5); White Blood Count 7.6 K/mm3 (4.8-10.8)
[2024-10-24 16:12] LABS: INR 2.12 (0.9-1.1); Prothrombin Time 21.7 seconds (9.2-12.1)
[2024-10-24 16:17] LABS: Albumin Level 4.2 g/dl (3.5-5.0); Chloride 102 mmol/L (98-107); Potassium 4.6 mmoL/L (3.5-5.1); Sodium 138 mmol/L (136-145)
[2024-10-24 16:19] LABS: Alanine Aminotransferase 19 U/L (12-78); Aspartate Amino Transferase 35 U/L (17-59); Blood Urea Nitrogen 21 mg/dl (9-20); Estimated Glomerular Filt Rate 73 ml/min (>60); GFR (African American) 89 ML/MIN (>60)
[2024-10-24 16:20] LABS: Albumin/Globulin Ratio 1.8 (1.1-1.8); Alkaline Phosphatase 69 U/L (38-126); Anion Gap 12.6 mEq/L (5-15); Bilirubin,Total 0.8 mg/dl (0.2-1.3); Calcium 8.8 mg/dl (8.4-10.2); Carbon Dioxide 28 mmol/L (22.0-30.0); Chol/HDL Ratio 4.3 (1-3.5); Cholesterol 142 mg/dl (140-200); Globulin 2.4 g/dL (1.3-3.2); Glucose 86 mg/dl (74-100); HDL Cholesterol 33 mg/dl (40-60); Total Protein,Serum 6.6 g/dl (6.3-8.2); Triglycerides 177 mg/dl (30-150); VLDL Cholesterol 35 mg/dL (0-40)
[2024-10-24 16:33] LABS: Direct LDL Cholesterol 75.51 mg/dL (100-129)
[2024-10-24 16:38] LABS: Hemoglobin A1C 5.5 % (4.0-6.0)
[2024-10-24 17:04] LABS: Uric Acid 7.1 mg/dl (3.5-8.5)
[2024-10-24 17:16] LABS: Creatinine,Urine Random 125 mg/dL (Not Estab.)
[2024-10-24 20:40] LABS: Microalbumin/Creatinine Ratio 20.3
== END 2024-10-24 23:59 | disposition home or self-care (01) ==
LOC: LAB.DROPOF 15:21
PROVIDERS: PCP Internal Medicine; Visit Provider Internal Medicine
DX: I10 Essential (primary) hypertension (principal); Z94.0 Kidney transplant status; E11.9 Type 2 diabetes mellitus without complications; M10.9 Gout, unspecified; E78.5 Hyperlipidemia, unspecified; I82.409 Acute embolism and thrombosis of unspecified deep veins of unspecified lower extremity; I77.0 Arteriovenous fistula, acquired; E66.01 Morbid (severe) obesity due to excess calories; Z68.37 Body mass index [BMI] 37.0-37.9, adult
CPT/HCPCS: 80053; 80061; 82043; 82570; 83036; 84550; 85025; 85610

== ENCOUNTER 2025-01-23 14:41 | Outpatient (CLI) | payer MEDICARE, SELFPAY ==
[2025-01-23 14:43] LABS: Creatinine,Urine Random 125 mg/dL (Not Estab.)
[2025-01-23 14:54] LABS: INR 6.16 (0.9-1.1)
[2025-01-23 14:55] LABS: Prothrombin Time 57.6 seconds (10.1-12.5)
== END 2025-01-23 23:59 | disposition home or self-care (01) ==
LOC: LAB.DROPOF 14:42
PROVIDERS: PCP Internal Medicine; Visit Provider Internal Medicine
DX: E11.9 Type 2 diabetes mellitus without complications (principal); Z79.84 Long term (current) use of oral hypoglycemic drugs; Z79.4 Long term (current) use of insulin; Z86.718 Personal history of other venous thrombosis and embolism
CPT/HCPCS: 82043; 82570; 85610

== ENCOUNTER 2025-01-26 14:33 | Outpatient (CLI) | payer MEDICARE, SELFPAY ==
[2025-01-26 12:22] LABS: INR 1.91 (0.9-1.1); Prothrombin Time 20.1 seconds (10.1-12.5)
[2025-01-26 12:55] LABS: Hemoglobin A1C 5.5 % (4.0-6.0)
== END 2025-01-26 23:59 | disposition home or self-care (01) ==
LOC: LAB.DROPOF 14:33
PROVIDERS: PCP Internal Medicine; Visit Provider Internal Medicine
DX: E11.9 Type 2 diabetes mellitus without complications (principal); Z79.84 Long term (current) use of oral hypoglycemic drugs; Z79.4 Long term (current) use of insulin; Z86.718 Personal history of other venous thrombosis and embolism
CPT/HCPCS: 36415; 83036; 85610

== ENCOUNTER 2025-02-06 09:35 | Outpatient (CLI) | payer MEDICARE, SELFPAY ==
[2025-02-06 09:50] LABS: Microscopic, Urine URINE MICROSCOPIC (MICROSCOPIC)
[2025-02-06 10:43] LABS: Basophils % 0.4 % (0.1-2.0); Eosinophils % 0.8 % (0.1-12.0); Hematocrit 46.4 % (42.0-52.0); Hemoglobin 14.4 g/dL (14.1-18.0); Immature Granulocytes # 0.24 10^3uL; Immature Granulocytes % 4.8 %; Lymphocytes # 1.7 K/mm3 (0.7-4.5); Lymphocytes % 34.9 % (10-50); Mean Corpuscular Hemoglobin 25.2 pg (27.0-31.2); Mean Corpuscular Volume 81.1 fl (80-94); Mean Platelet Volume 9.8 fl (7.4-10.4); Monocytes # 0.7 K/mm3 (0.1-1.0); Monocytes % 14.7 % (1.7-9.3); Neutrophils # 2.2 K/mm3 (1.8-7.8); Neutrophils % 44.4 % (37.0-80.0); Nucleated Red Blood Cells # 0 10^3/uL; Nucleated Red Blood Cells % 0 %; Platelet Count 191 K/mm3 (142-424); Red Blood Count 5.72 M/mm3 (4.60-6.20); Red Cell Distribution Width 17.1 % (11.5-17.5); Red Cell Distribution Width-SD 49.3 fL
[2025-02-06 10:44] LABS: Appearance,Urine CLEAR (Clear); Bilirubin,Urine Negative (Negative); Blood, Urine Negative (Negative); Color,Urine YELLOW (Yellow); Glucose,Urine (UA) Negative (Negative); Ketones,Urine Negative (Negative); Leukocyte Esterase,Urine Negative (Negative); Nitrate,Urine Negative (Negative); Protein,Urine Negative (Negative); Urobilinogen,Urine 0.2 EU/dl (0.2)
[2025-02-06 10:48] LABS: INR 2.48 (0.9-1.1); Prothrombin Time 25.4 seconds (10.1-12.5)
[2025-02-06 11:23] LABS: Squamous Epithelial Cell,Urine Occasional #/hpf (0-5); WBC,Urine Occasional #/hpf (0-3)
[2025-02-06 12:15] LABS: Chloride 103 mmol/L (98-107); Sodium 136 mmol/L (136-145)
[2025-02-06 12:16] LABS: Albumin Level 4.1 g/dl (3.5-5.0); Potassium 3.7 mmoL/L (3.5-5.1)
[2025-02-06 12:19] LABS: Anion Gap 11.7 mEq/L (5-15); Blood Urea Nitrogen 20 mg/dl (9-20); Calcium 8.4 mg/dl (8.4-10.2); Carbon Dioxide 25 mmol/L (22.0-30.0); Estimated Glomerular Filt Rate 66 ml/min (>60); GFR (African American) 79 ML/MIN (>60); Glucose 93 mg/dl (74-100); Phosphorous 2.8 mg/dl (2.5-4.5)
[2025-02-06 12:33] LABS: Intact Parathyroid Hormone 138.4 pg/mL (7.5-53.5)
[2025-02-06 16:54] LABS: Creatinine,Urine Random 110 mg/dL (Not Estab.); Total Protein,Urine Random < 5.0 mg/dL (0.0-12.0)
[2025-02-08 19:37] LABS: Sirolimus(Rapamune) 2.4 ng/mL (3.0-20.0)
== END 2025-02-06 23:59 | disposition home or self-care (01) ==
LOC: LAB 09:35
PROVIDERS: Student in an Organized Health Care Education/Training Program; PCP Internal Medicine; Visit Provider Internal Medicine
DX: Z51.81 Encounter for therapeutic drug level monitoring (principal); I82.409 Acute embolism and thrombosis of unspecified deep veins of unspecified lower extremity; E55.9 Vitamin D deficiency, unspecified; Z94.0 Kidney transplant status; Z79.01 Long term (current) use of anticoagulants
CPT/HCPCS: 36415; 80069; 80195; 81001; 82570; 82652; 83970; 84156; 85025; 85610

== ENCOUNTER 2025-03-27 07:10 | Outpatient (CLI) | payer MEDICARE, SELFPAY ==
--- OUTSIDE RECORDS SUMMARY | 2025-03-27 07:12 | XMS_ITS | Clinical Summary ---
Author Organization [facility] Address [address] [place] [address] Care Team Providers Care Analytics Analyst Name Role Phone Jesse Uriarte MD Primary Care Provider [phone] Allergies Active Allergy Reactions Criticality Noted Date Comments Allopurinol Other - please docum ent in the comment field Low 11/18/2018 Interfers with liver functions Medications calcitriol (Rocaltrol) 0.25 MCG capsule 5 times per week 04/17/2021 Active cholecalciferol (Vitamin D-3) 50 MCG (1999 UT) capsule Take 1 capsule (2,000 Units) by mouth 1 (one) time each day. Active citalopram (CeleXA) 40 MG tablet Take 1 tablet (40 mg) by mouth 1 (one) time each day. 04/15/2021 Active Toujeo SoloStar 300 UNIT/ML injection 1 (one) time each day in the morning. 15 units daily 04/11/2021 Active lisinopril-hydr oCHLOROthiazide 10-12.5 MG tablet 01/11/2021 Active metFORMIN (Glucophage) 500 MG tablet Take 2 tablets (1,000 mg) by mouth 2 (two) times a day with meals. 06/18/2021 Active mycophenolate (Cellcept) 500 MG tablet Take 1 tablet (500 mg) by mouth 2 (two) times a day. 04/11/2021 Active predniSONE 5 MG (21) tablet therapy pack Take 1 each by mouth 1 (one) time each day. 7.5 mg qd Active rosuvastatin (Crestor) 10 MG tablet 04/15/2021 Active sirolimus (Rapamune) 1 MG tablet Take 1 tablet (1 mg) by mouth every other day. 06/22/2021 Active warfarin (Coumadin) 10 MG tablet Take 1 tablet (10 mg) by mouth 1 (one) time each day. Active True Metrix Blood Glucose Test test strip 06/11/2022 Act afsaneh Unifine Pentips 31G X 8 MM [facility] 05/01/2022 Act afsaneh TRUEplus Lancets 33G [facility] 05/08/2022 Active Colchicine (Mitigare) 0.6 MG capsule Take 0.6 mg by mouth 1 (one) time each day. Active Active Problems Problem Noted Date Diagnosed Date Hypoproteinemia 07/22/2023 Overview (07/22/2023): - With hypoalbuminemia - Continue regular diet HLD (hyperlipidemia) 07/21/2023 Overview (07/22/2023): - Continue home statin Type 2 diabetes mellitus 07/21/2023 Overview (07/22/2023): - HOLD home metformin and Toujeo - Resume after discharge Depression 07/21/2023 Overview (07/22/2023): - Continue home citalopram Class 2 obesity in adult 07/21/2023 Overview (07/22/2023): - BMI 36 on admit - Complicates all aspects of care and recovery History of kidney transplant 07/21/2023 Overview (07/22/2023): - In 2003 at [facility] in [place], [place] - Renal Transplant consulted - Continue home immunosuppression medication regimen (Mycophenolate 500 mg BID, prednisone 7.5 mg daily, & sirolimus 1 mg every other day) - Follow-up with [facility] in August as scheduled History of DVT (deep vein thrombosis) 07/21/2023 Overview (07/22/2023): - On warfarin at home - Resumed home warfarin 10 mg on 07/22/23 AM and bridging with lovenox 100 mg (~0.8 mg/kg) BID at home. Patient to take warfarin 10 mg daily EXCEPT Thursday (07/28/23). Keep scheduled follow-up in INR clinic on Thursday07/29/23 Chronic anticoagulation 07/21/2023 Overview (07/22/2023): - On warfarin at home for h/o DVTs - Resumed home warfarin 10 mg on 07/22/23 AM and bridging with lovenox 100 mg (~0.8 mg/kg) BID at home. Patient to take warfarin 10 mg daily EXCEPT Thursday (07/28/23). 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 Castro) - 07/21/23: Left axillary artery aneurysm resection with graft interposition (Dr. Castro) - Resumed home warfarin 10 mg on 07/22/23 AM and bridging with lovenox 100 mg (~0.8 mg/kg) BID at home. Patient to take warfarin 10 mg daily EXCEPT Thursday (07/28/23). 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 07/21/2023 Family History Medical History Relation Name Comments COPD Father Roman Calloway Cancer Mother Susan Calloway Hypertension Mother Susan Calloway Other cancer Mother Susan Calloway Anesthesia problems Neg Hx Malig Hyperthermia Neg Hx Relation Name Status Comments Father Roman Calloway Mother Susan Calloway Social History Tobacco Use Types Packs/Day Years Used Date Smoking Tobacco: Never Passive Smoke Exposure: Never Smokeless Tobacco: Never Tobacco Cessation:Counseling Given: No Alcohol Use Standard Drinks/Week Comments No 0 (1 standard drink = 0.6 oz pure alcohol) Alcoholic Drinks/day: No history of alcohol use Humiliation, Afraid, Rape, and Kick questionnair e Answer Date Recorded Within the last year, have y ou been afraid of your partner or ex-partner? No 07/22/2023 Within the last year, have y ou been humiliated or emotionally abused in other ways by your partner or ex-partner? No Within the last year, have y ou been kicked, hit, slapped, or otherwise physically hurt by your partner or ex-partner? No 07/22/2023 Within the last year, have y ou been raped or forced to have any kind of sexual activity by your partner or ex-partner? No 07/22/2023 PHQ-2 Answer Date Recorded Patient Health Questionnaire-2 Score 0 07/14/2022 Hunger Vital Sign Answer Date Recorded Within the past 12 months, y ou worried that your food would run out before you got the money to buy more. Never true 07/22/20 23 Within the past 12 months, t he food you bought just didn't last and you didn't have money to get more. Never true 07/22/2023 PRAPARE - Transportation Answer Date Re corded In the past 12 months, has l ack of transportation kept you from medical appointments or from getting medications? No 06/29 In the past 12 months, has l ack of transportation kept you from meetings, work, or from getting things needed for daily living? No 07/22/2023 Housing Stability Vital Sign Answer Ryne e Recorded In the last 12 months, was t here a time when you were not able to pay the mortgage or rent on time? No 07/22/2023 In the last 12 months, how many places have you lived? 1 07/22/2023 In the last 12 months, was t here a time when you did not have a steady place to sleep or slept in a longterm (including now)? No 07/22/2023 CAGE ASSESSMENT Answer Date Recorded Cage unable to access Not on file 07/21/2023 Cage max number of drinks Not on file 2022 Cage Beverages a week Not on file 07/21/2023 Have you ever felt you should CUT down on your d rinking? 0 07/21/2023 Have you been ANNOYED by people criticizing your drinking? 0 07/21/2023 Have you felt GUILTY about your drinking? 0 07/21/2023 Have you had a drink first t carmen in the morning (EYE-SUPERVISOR/PORT DIRECTOR) to steady your nerves or to get rid of a hangover? 0 07/21/2023 CAGE Questionnaire Score 0 023 Utilities Answer Date Recorded In the past 12 months has th e electric, gas, oil, or water company threatened to shut off services in your home? No 07/22/2023 Sex and Gender Information Value Date Recorded Sex Assigned at Male 04/01/2022 2:09 PM EDT Legal Sex Male 6:28 PM EDT Gender Identity Male 04/01/2022 2:09 PM EDT Sexual Orientation Straight 04/01/2022 2: 09 PM EDT Last Filed Vital Signs Vital Sign Reading Time Taken Comments Blood Pressure 110/73 12/05/2024 12:54 PM EDT Pulse 91 12/05/2024 12:54 PM EDT Temperature 36.2 C (97.2 F) 12/05/2024 12:54 PM EDT Respiratory Rate 16 09/11/2023 8:54 AM EST Oxygen Saturation 96% 12/05/2024 12:54 PM EDT Inhaled Oxygen Concentration - - Weight 134 kg (296 lb 1.2 oz) 12/05/2024 12:54 P M EDT Height 190.5 cm (6' 3 ) 12/05/2024 12:54 PM EDT Body Mass Index 37.01 12/05/2024 12:54 PM EDT Plan of Treatment Health Maintenance Due Date Last Done Comments [facility]-Hepatitis C Screening 1950 [facility]-Medicare Annual Wellness (AWV) 1950 [facility]-Infant/Child/Adol SDOH Screenings 1950 Diabetes: Dental Exam 02/01/1962 [facility]- SDOH Screenings 02/01/1970 [facility]-Adult SDOH Screenings 02/01/1970 [facility]-DTaP,Tdap,and Td Vaccines (1 - Tdap) 02/01/1971 [facility]-Zoster Vaccines (1 of 2) 02/01/1971 CT Colonography 02/01/1997 Colonoscopy 02/01/1997 FIT-DNA 02/01/1997 FIT 02/01/1997 FOBT 02/01/1997 Sigmoidoscopy 02/01/1997 [facility]-Colorectal Cancer Screening 02/01/1997 [facility]-RSV Vaccine: 60+ Years or (1 - Risk 60-74 years 1-dose series) 2012 [facility]-Diabetes: Hemoglobin A1C 05/18/2019 11/18/2018 [facility]-Depression Screening 07/14/2023 07/14/2022 [id number] Vaccine (8 - Pfizer risk 2023- season) 2024 06/03/2024, 06/18/2023, 06/11/2022, Additional history exists [facility]-Influenza Vaccine Completed 06/03/2024, 023 [facility]-Pneumococcal Vaccine: 50+ Years Completed 07/25/2024, 11/30/2019 [facility]-Obesity Intervention Completed 025, 09/11/2023, 07/13/2023, Additional history exists HPV Vaccines Aged Out No longer eligi ble based on patient's age to complete this topic [facility]-HIB Vaccines Aged Out No longer e ligible based on patient's age to complete this topic [facility]-Hepatitis A Vaccines Aged Out No longer eligible based on patient's age to complete this topic [facility]-IPV Vaccines Aged Out No longer e ligible based on patient's age to complete this topic [facility]-Rotavirus Vaccines Aged Out No lo nger eligible based on patient's age to complete this topic Medical Devices Implanted Type Area Front Desk Coordinator Device Identifier Shelf Expiration Date Model / Serial / Lot Graft Propaten Ring W/Hep 8x40 - [id number] Implanted:Qty : 1 on 07/21/2023 by Aneudy Castro MD at [facility] Graft Left: Arterial [id number] 08/06/2025 [id number] / / [id number] Insurance [employer] Advance Directives * Full Code (Latest Code Status on File) Date Activated Date Inactivated Comments 07/21/2023 1:10 PM 07/22/2023 7:00 PM Question Answer Comments Patient has decision-making capacity? Yes Care Teams Analytics Analyst Relationship Specialty Start Date End Date Jesse Uriarte MD [address] [facility] [address] [facility] [address] [place] [address] PCP - General 02/08/21
--- OUTSIDE RECORDS SUMMARY | 2025-03-27 07:12 | XMS_ITS | Clinical Summary ---
Author Organization [facility] Address [address] [place] [address] Phone Care Team Providers Care Safety Person Name Role Phone Panda Marrero MD Unavailable [ ] Conditions or Problems No information available. Medications No information available. Medications Administered No information available. Allergies, Adverse Reactions, Alerts No information available. Results No information available. Plan of Care No information available. Procedures No information available. Vital Signs No information available. Immunizations No information available. Advance Directives No information available.
--- NOTE | 2025-03-27 07:30 | MR_ITS ---
FINAL REPORT CLINICAL HISTORY: rule out acoustic neuroma COMPARISON: None FINDINGS: Multi planar MR imaging was obtained through the brain without contrast. The midline structures appear intact. There is no evidence of Chiari malformation. On T2 and flair axial images the brain parenchyma demonstrates small foci of nonenhancing increased signal, in this age group most likely mild changes of chronic ischemic microvascular disease. Mild atrophy is present. On diffusion-weighted images there is no evidence of restricted diffusion. The visualized paranasal sinuses demonstrate normal signal voids. The seventh and eighth nerve root complexes are intact, specifically, no evidence of an enhancing mass to suggest an acoustic neuroma is identified. IMPRESSION: Mild atrophy with mild changes of chronic ischemic microvascular disease. No acute intracranial abnormality, specifically no evidence of an acoustic neuroma is identified. Reviewed, Interpreted and Dictated by Lucas Saldana MD Transcribed by Alondra Alonzo Authenticated and [facility]
[2025-03-27 08:33] LABS: Microscopic, Urine URINE MICROSCOPIC (MICROSCOPIC)
[2025-03-27 08:52] LABS: Mean Corpuscular HGB Conc 30.6 g/dL (31.8-35.4); Mean Corpuscular Volume 81.5 fl (80-94); Nucleated Red Blood Cells # 0 10^3/uL; Nucleated Red Blood Cells % 0 %; Platelet Count 207 K/mm3 (142-424); Red Blood Count 6.01 M/mm3 (4.60-6.20); Red Cell Distribution Width 17.1 % (11.5-17.5); Red Cell Distribution Width-SD 47.8 fL; White Blood Count 8.3 K/mm3 (4.8-10.8)
[2025-03-27 09:13] LABS: Appearance,Urine CLEAR (Clear); Bilirubin,Urine Negative (Negative); Blood, Urine TRACE-L (Negative); Color,Urine YELLOW (Yellow); Glucose,Urine (UA) Negative (Negative); Ketones,Urine Negative (Negative); Leukocyte Esterase,Urine Negative (Negative); Nitrate,Urine Negative (Negative); Protein,Urine Negative (Negative); Specific Gravity, Urine 1.015 (1.005-1.030)
[2025-03-27 09:23] LABS: Creatinine,Urine Random 97 mg/dL (Not Estab.)
[2025-03-27 09:28] LABS: Bacteria,Urine Trace /lpf; RBC,Urine Occasional #/hpf (0-3); Squamous Epithelial Cell,Urine Occasional #/hpf (0-5); WBC,Urine Occasional #/hpf (0-3)
[2025-03-27 09:31] LABS: Albumin Level 4.3 g/dl (3.5-5.0); Chloride 97 mmol/L (98-107); Potassium 4.4 mmoL/L (3.5-5.1); Sodium 138 mmol/L (136-145)
[2025-03-27 09:34] LABS: Anion Gap 14.4 mEq/L (5-15); Blood Urea Nitrogen 18 mg/dl (9-20); Carbon Dioxide 31 mmol/L (22.0-30.0); Estimated Glomerular Filt Rate 59 ml/min (>60); GFR (African American) 72 ML/MIN (>60); Phosphorous 2.7 mg/dl (2.5-4.5)
[2025-03-27 09:35] LABS: Calcium 9.2 mg/dl (8.4-10.2); Glucose 134 mg/dl (74-100)
[2025-03-30 17:11] LABS: Sirolimus(Rapamune) 3.2 ng/mL (3.0-20.0)
== END 2025-03-27 23:59 | disposition home or self-care (01) ==
PROVIDERS: Student in an Organized Health Care Education/Training Program; PCP Internal Medicine; Visit Provider Nurse Practitioner
DX: G31.9 Degenerative disease of nervous system, unspecified (principal); I67.82 Cerebral ischemia; Z94.0 Kidney transplant status; H91.90 Unspecified hearing loss, unspecified ear
CPT/HCPCS: 36415; 70551; 80069; 80195; 81001; 82570; 84156; 85027

== ENCOUNTER 2025-04-24 11:10 | Outpatient (CLI) | payer MEDICARE, SELFPAY ==
[2025-04-24 13:47] LABS: Hematocrit 45.5 % (42.0-52.0); Hemoglobin 14.1 g/dL (14.1-18.0); Immature Granulocytes % 6.2 %; Mean Corpuscular HGB Conc 31.0 g/dL (31.8-35.4); Mean Corpuscular Hemoglobin 25.4 pg (27.0-31.2); Mean Corpuscular Volume 81.8 fl (80-94); Nucleated Red Blood Cells % 0 %; Platelet Count 218 K/mm3 (142-424); Red Blood Count 5.56 M/mm3 (4.60-6.20); Red Cell Distribution Width-SD 48.4 fL; White Blood Count 5.5 K/mm3 (4.8-10.8)
[2025-04-24 14:31] LABS: Alanine Aminotransferase 22 U/L (12-78); Albumin Level 3.9 g/dl (3.5-5.0); Albumin/Globulin Ratio 2.0 (1.1-1.8); Alkaline Phosphatase 67 U/L (38-126); Anion Gap 10.0 mEq/L (5-15); Aspartate Amino Transferase 32 U/L (17-59); Bilirubin,Total 0.6 mg/dl (0.2-1.3); Blood Urea Nitrogen 14 mg/dl (9-20); Calcium 9.3 mg/dl (8.4-10.2); Carbon Dioxide 29 mmol/L (22.0-30.0); Chloride 104 mmol/L (98-107); Cholesterol 133 mg/dl (140-200); Creatinine,Serum 1.00 mg/dl (0.66-1.25); Estimated Glomerular Filt Rate 73 ml/min (>60); GFR (African American) 89 ML/MIN (>60); Globulin 2.0 g/dL (1.3-3.2); Glucose 111 mg/dl (74-100); HDL Cholesterol 36 mg/dl (40-60); INR 3.30 (0.9-1.1); Potassium 4.0 mmoL/L (3.5-5.1); Prothrombin Time 33.5 seconds (10.1-12.5); Sodium 139 mmol/L (136-145); Total Protein,Serum 5.9 g/dl (6.3-8.2); Triglycerides 180 mg/dl (30-150); Uric Acid 7.2 mg/dl (3.5-8.5)
[2025-04-24 14:48] LABS: Total Cells Counted 100
[2025-04-24 14:49] LABS: Hypochromasia 1+
[2025-04-24 15:40] LABS: Hemoglobin A1C 5.3 % (4.0-6.0)
--- OUTSIDE RECORDS SUMMARY | 2025-04-25 15:28 | XMS_ITS | Clinical Summary ---
Author Organization [facility] Address [address] [place] [address] Phone Care Team Providers Care Blower And Compressor Assembler Name Role Phone Panda Marrero MD Unavailable [...]
--- OUTSIDE RECORDS SUMMARY | 2025-04-25 15:29 | XMS_ITS | Clinical Summary ---
Author Organization [facility] Address [address] [place] [address] Care Team Providers Care Real Estate Professor Name Role Phone Jesse Uriarte MD Primary Care Provider [phone] Allergies Active Allergy Reactions Criticality Noted Date [...] afsaneh Unifine Pentips 31G X 8 MM [facility] [place] 05/01/2022 Act afsaneh TRUEplus Lancets 33G [facility] [place] 05/08/2022 Active Colchicine (Mitigare) 0.6 MG capsule [...] 07/21/2023 Overview (07/22/2023): - In [address] [facility] in [place], [place] - Renal Transplant consulted - Continue [...] place to sleep or slept in a intermediate (including now)? No 07/22/2023 CAGE ASSESSMENT Answer [...] drink first t carmen in the morning (EYE-VACUUM TESTER CANS) to steady your nerves or to get [...] A1C 05/18/2019 11/18/2018 [facility]-Depression Screening 07/14/2023 07/14/2022 [id number] Vaccine (8 - Pfizer risk 2023- season) 2024 06/03/2024, 06/18/2023, 06/11/2022, Additional history exists [facility]-Influenza Vaccine (#1) 2025 06/03/2024, [facility]-Pneumococcal Vaccine: 50+ Years Completed 07/25/2024, 11/30/2019 [...] this topic Medical Devices Implanted Type Area Occupational Medicine Specialist Device Identifier Shelf Expiration Date Model / Serial / Lot Graft Propaten Ring W/Hep 8x40 - [id number] Implanted:Qty : 1 on 07/21/2023 by Aneudy Castro MD at [facility] Graft Left: Arterial [employer]-[id number] 08/06/2025 [id number] / / [id number] Insurance [employer] MEDICARE Advance Directives * Full Code (Latest Code Status on File) Date Activated Date Inactivated Comments 07/21/2023 1:10 PM 07/22/2023 7:00 PM Question Answer Comments Patient has decision-making capacity? Yes Care Teams Real Estate Professor Relationship Specialty Start Date End Date Jesse Uriarte MD [address] [facility] [address] [place] [address] PCP - General 02/08/21
--- OUTSIDE RECORDS SUMMARY | 2025-04-25 15:29 | XMS_ITS | Clinical Summary ---
Author Organization [facility] Address [address] [place] [address] Care Team Providers Care Java Software Architect Name Role Phone Jesse Uriarte MD Primary Care Provider [phone] Allergies Active Allergy Reactions Criticality Noted Date Comments Allopurinol Other (See Comments) Low 11/18/2018 Interfers with liver functions Medications predniSONE 5 MG (21) tablet therapy pack dosepak Take 1 each by mouth Daily. Take as directed on package instructions.; 7.5 mg total Active mycophenolate (CELLCEPT) 500 MG tablet Take 1,000 mg by mouth Daily. Active sirolimus (RAPAMUNE) 1 MG tablet Take 1 mg by mouth Every Other Day. Active lisinopril-hydr ochlorothiazide (PRINZIDE,ZESTO RETIC) 10-12.5 MG per tablet Take 0.5 tablets by mouth Daily. Active rosuvastatin (CRESTOR) 10 MG tablet Take 10 mg by mouth Daily. Active warfarin (COUMADIN) 10 MG tablet Take 10 mg by mouth Daily. Will take last dose 11-22-[address] Pires Active colchicine 0.6 MG tablet Take 0.6 mg by mouth Daily. Active calcitriol (ROCALTROL) 0.25 MCG capsule Take 0.25 mcg by mouth Take As Directed. AND SATURDAYS Active Cholecalciferol (VITAMIN D) 2000 units capsule Take 2,000 Units by mouth Daily. Active aspirin 81 MG EC tablet Take 81 mg by mouth Daily. Active Sod Picosulfate-Mag Ox-Cit Acd 10-3.5-12 MG-GM -GM/160ML solution Take 350 mL by mouth Take As Directed. Please follow instructions that were mailed to your home. If you did not receive these instructions please call our office at [phone]. 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 Not on file 05/2023 Does Anyone Keep You from Co ntacting Others or Doint Things Outside the Home? Not on file 07/06/2023 Physical Sign of Abuse Present Not on file 1 Housing Stability Answer Date Recorded Current Living Arrangements Not on file 05/2023 Potentially Unsafe Housing Conditions Not on luis felipe e 07/06/2023 Family and Community Support Answer Ryne e Recorded Help with Day-to-Day Activities Not on file 07/06/2023 Lonely or Isolated Not on file 07/06/2023 Employment Answer Date Recorded Do you want help finding or keeping work or a myrtle b? Not on file 07/06/2023 Disabilities Answer Date Recorded Concentrating, Remembering, or Making Decisions Difficulty Not on file 07/06/2023 Doing Errands Independently Difficulty Not on fi le 07/06/2023 Education Answer Date Recorded Help with school or training? Not on file Preferred Language Not on file 07/06/2023 Sex and Gender Information Value Date Recorded Sex Assigned at Not on file Legal Sex Male 11:07 AM EDT Gender Identity Not on file Sexual Orientation Not on file Last Filed Vital Signs Vital Sign Reading Time Taken Comments Blood Pressure 110/58 11/30/2018 11:47 AM EST Pulse 80 11/30/2018 11:47 AM EST Temperature 36.2 C (97.2 F) 11/30/2018 11:47 AM EST Respiratory Rate 18 11/30/2018 11:47 AM EST Oxygen Saturation 92% 11/30/2018 11:47 AM EST Inhaled Oxygen Concentration - - Weight 155 kg (341 lb 1.6 oz) 11/29/2018 4:23 PM EST Height 190.5 cm (6' 3 ) 11/29/2018 7:55 AM EST Body Mass Index 42.63 11/29/2018 7:55 AM EST Plan of Treatment Health Maintenance Due Date Last Done Comments TDAP/TD VACCINES (1 - Tdap) 02/01/1971 COLOGUARD 02/01/1997 COLON CANCER SCREENING 5 YEA R SIGMOIDOSCOPY 02/01/1997 CT COLONOGRAPHY 02/01/1997 FECAL OCCULT BLOOD TEST 02/01/1997 FIT Testing (1 year) 02/01/1997 ZOSTER VACCINE (1 of 2) 02/01/2002 AAA SCREEN ONCE 02/01/2017 ANNUAL PHYSICAL 02/03/2018 HEPATITIS C SCREENING 02/03/2018 Pneumococcal Vaccine 50+ (2 of 2 - PPSV23) 11/29/2020 11/30/2019 COVID-19 Vaccine (2023-2 5 season) 2024 06/11/2022, 12/17/2021, 05/15/2021, Additional history exists INFLUENZA VACCINE 06/28/2025 COLONOSCOPY 02/26/2033 02/26/2023, 02/23/2018 COLORECTAL CANCER SCREENING 02/26/2033 HEMOGLOBIN A1C Discontinued 11/18/2018 Medical Devices Implanted Type Area Cloth Printing Utility Worker Device Identifier Shelf Expiration Date Model / Serial / Lot Allogrft Juan Fem [id number] 22cm - [id number] - [id number] Implanted:Qty: 1 on 11/29/2018 by Michael Pires MD at [facility] Implant Left: Arm CRYOLIFE 05/31/2025 [id number] / [id number] / [id number] Procedures Procedure Name Priority Date/Time Associated Diagnosis Comments SCANNED - COLONOSCOPY 02/26/2023 HEMOGLOBIN A1C Add-On 11/18/2018 1:52 PM EST from Last 3 Months or Most Recently Relevant to Health Maintenance Results * SCANNED - COLONOSCOPY (02/26/2023) Williams Miguel MD CHART REVIEW TABS Final Res ult * (ABNORMAL) Hemoglobin A1c (11/18/2018 1:52 PM EST) Hemoglobin A1C 7.20(H) 4.80 - 5.60 % 11/18/2018 5:04 PM EST [facility] Blood Venipuncture / Unknown 11/18/2018 1:52 PM EST 11/18/2018 2:04 PM EST Narrative [facility] - 11/18/2018 5:04 PM EST The [place] [employer] recommends maintenance of Hemoglobin A1C at 7.0% or lower. Goals for Hemoglobin A1C reduction may need to be modified if hypoglycemia is a problem. Michael Pires MD LAB BLOOD ORDERABLES Final Result [facility]
[address] [place] [address], from Last 3 Months or Most Recently Relevant to Health Maintenance Insurance [facility] MED[facility] Advance Directives * CPR (Attempt to Resuscitate) (Latest Code Status on File) Date Activated Date Inactivated Comments 11/29/2018 4:32 PM 11/30/2018 3:45 PM Question Answer Comments Code Status (Patient has no pulse and is not breathing): CPR (Attempt to Resuscitate) Medical Interventions (Patie nt has pulse or is breathing): Full Level Of Support Discussed With: Patient Care Teams Java Software Architect Relationship Specialty Start Date End Date Jesse Uriarte MD [address] [place] [facility] [address] [place] [address] PCP - General Internal Medicine 11/18/18
== END 2025-04-24 23:59 | disposition home or self-care (01) ==
LOC: LAB.DROPOF 04-25 15:27
PROVIDERS: PCP Internal Medicine; Visit Provider Internal Medicine
DX: E78.5 Hyperlipidemia, unspecified (principal); I10 Essential (primary) hypertension; E11.9 Type 2 diabetes mellitus without complications; M10.9 Gout, unspecified; Z94.0 Kidney transplant status; I82.409 Acute embolism and thrombosis of unspecified deep veins of unspecified lower extremity
CPT/HCPCS: 80053; 80061; 82043; 82570; 83036; 84550; 85007; 85025; 85610

== ENCOUNTER 2025-07-27 08:46 | Outpatient (CLI) | payer MEDICARE, SELFPAY ==
[2025-07-27 13:57] LABS: INR 2.03 (0.9-1.1); Prothrombin Time 21.4 seconds (10.1-12.5)
[2025-07-27 14:38] LABS: Hemoglobin A1C 5.7 % (4.0-6.0)
--- OUTSIDE RECORDS SUMMARY | 2025-07-31 08:50 | XMS_ITS | Clinical Summary ---
Author Organization [facility] Address [address] [place] [address] Phone Care Team Providers Care Senior Instrumentation Engineer Name Role Phone Panda Marrero MD Unavailable [...]
--- OUTSIDE RECORDS SUMMARY | 2025-07-31 08:51 | XMS_ITS | Clinical Summary ---
Author Organization [facility] Address [address] [place] [address] Care Team Providers Care City Attorney Name Role Phone Jsese Uriarte MD Primary Care Provider [phone] Allergies Active Allergy Reactions Criticality Noted Date [...] these instructions please call our office at [phone]. 350 mL 3 Active Active Problems Problem [...] Pneumococcal Vaccine 50+ (2 of 2 - PCV20 or PCV21) 11/29/2020 11/30/2019 INFLUENZA VACCINE 04/28/2025 COVID-19 Vaccine (2024-2 6 season) 2025 06/11/2022, 12/17/2021, 05/15/2021, Additional history exists COLONOSCOPY 02/26/2033 02/26/2023, 02/23/2018 COLORECTAL CANCER SCREENING 02/26/2033 HEMOGLOBIN A1C Discontinued 11/18/2018 Medical Devices Implanted Type Area Futures Trader Device Identifier Shelf Expiration Date Model / Serial / Lot Allogrft Juan Fem [id number] 22cm - [id number] - [id number] Implanted:Qty: 1 on 11/29/2018 by Michael Pires MD at [facility] Implant Left: Arm CRYOLIFE 05/31/2025 [id number] / [id number] / [id number] Procedures Procedure Name Priority Date/Time Associated Diagnosis Comments SCANNED - COLONOSCOPY 02/26/2023 HEMOGLOBIN A1C Add-On 11/18/2018 1:52 PM EST from Last 3 Months or Most Recently Relevant to Health Maintenance Results * SCANNED - COLONOSCOPY (02/26/2023) us Williams Miguel MD CHART REVIEW TABS Final Res ult * (ABNORMAL) Hemoglobin A1c (11/18/2018 1:52 PM EST) Hemoglobin A1C 7.20(H) 4.80 - 5.60 % 11/18/2018 5:04 PM EST [facility] Blood Venipuncture / Unknown 11/18/2018 1:52 PM EST 11/18/2018 2:04 PM EST Narrative [facility] - 11/18/2018 5:04 PM EST The [place] recommends maintenance of Hemoglobin A1C at 7.0% or lower. Goals for Hemoglobin A1C reduction may need to be modified if hypoglycemia is a problem. Michael Pires MD LAB BLOOD ORDERABLES Final Result [facility]
[address] [place] [address], from Last 3 Months or Most Recently Relevant to Health Maintenance Insurance MEDICARE ADVANTAGE Advance Directives * CPR (Attempt to Resuscitate) (Latest Code Status on File) Date Activated Date Inactivated Comments 11/29/2018 4:32 PM 11/30/2018 3:45 PM Question Answer Comments Code Status (Patient has no pulse and is not breathing): CPR (Attempt to Resuscitate) Medical Interventions (Patie nt has pulse or is breathing): Full Level Of Support Discussed With: Patient Care Teams City Attorney Relationship Specialty Start Date End Date Jesse Uriarte MD [address] [place] [facility] [address] [place] [address] PCP - General Internal Medicine 11/18/18
--- OUTSIDE RECORDS SUMMARY | 2025-07-31 08:51 | XMS_ITS | Clinical Summary ---
Author Organization [facility] Address [address] [place] [address] Care Team Providers Care Concrete Pipe Plant Supervisor Name Role Phone Jesse Uriarte MD Primary Care Provider [phone] Allergies Active Allergy Reactions Criticality Noted Date [...] afsaneh Unifine Pentips 31G X 8 MM [facility] [place] 05/01/2022 Act afsaneh TRUEplus Lancets 33G [facility] [place] 05/08/2022 Active Colchicine (Mitigare) 0.6 MG capsule [...] 07/21/2023 Overview (07/22/2023): - In 2003 at [facility] in [place], [place] - Renal Transplant consulted - Continue [...] drink first t carmen in the morning (EYE-ASSISTANT IMPORT MANAGER) to steady your nerves or to get [...] A1C 05/18/2019 11/18/2018 [facility]-Depression Screening 07/14/2023 07/14/2022 [id number] Vaccine (8 - Pfizer risk 2023- season) 2025 06/03/2024, 06/18/2023, 06/11/2022, Additional history exists [facility]-Influenza [...] this topic Medical Devices Implanted Type Area Microbiological Laboratory Technician Device Identifier Shelf Expiration Date Model / Serial / Lot Graft Propaten Ring W/Hep [id number] - [id number] Implanted:Qty : 1 on 07/21/2023 by Aneudy Castro MD at [facility] Graft Left: Arterial [id number] 08/06/2025 [id number] / / [id number] Insurance [employer] MEDICARE Advance Directives * Full Code (Latest Code Status on File) Date Activated Date Inactivated Comments 07/21/2023 1:10 PM 07/22/2023 7:00 PM Question Answer Comments Patient has decision-making capacity? Yes Care Teams Concrete Pipe Plant Supervisor Relationship Specialty Start Date End Date Jesse Uriarte MD [address] [facility] [address] [place] [address] PCP - General 02/08/21
== END 2025-07-27 23:59 ==
LOC: LAB.DROPOF 07-31 08:46
PROVIDERS: PCP Internal Medicine; Visit Provider Internal Medicine
DX: E11.9 Type 2 diabetes mellitus without complications (principal); I82.409 Acute embolism and thrombosis of unspecified deep veins of unspecified lower extremity; Z12.5 Encounter for screening for malignant neoplasm of prostate
CPT/HCPCS: 83036; 85610; G0103